=== PATIENT | male | born 1955 | race Caucasian/White ===

== ENCOUNTER 2020-05-11 13:53 | Inpatient (IN) | payer OTHER ==
[~2020-05-11] VITALS: Ht 167.6 cm; Wt 53.8 kg
[2020-05-11] MEDS ORDERED: POLYETHYLENE GLYCOL 17 GM PACKET PO PRN (14:00)
[2020-05-11] MEDS ORDERED: DOCUSATE 100 MG CAPSULE PO PRN (14:00)
[2020-05-11] MEDS ORDERED: PLEASE ENTER HEIGHT AND WEIGHT MC SCH (15:30)
[2020-05-11] MEDS ORDERED: PLEASE ENTER ALLERGIES MC SCH (15:30)
[2020-05-11 15:58] VITALS: BP 118/73
[2020-05-11] MEDS ORDERED: DOXE50CA PO (16:36)
[2020-05-11] MEDS ORDERED: ATEN-104 PO (16:36)
[2020-05-11] MEDS ORDERED: GABA600T PO (16:36)
[2020-05-11] MEDS ORDERED: MODA100T2 PO (16:36)
[2020-05-11] MEDS ORDERED: MELO15TA24 PO (16:36)
[2020-05-11] MEDS ORDERED: CLOP75TA52 PO (16:36)
[2020-05-11] MEDS ORDERED: ZOLP10TA PO (16:36)
[2020-05-11] MEDS ORDERED: TERA2CAP3 PO (16:36)
[2020-05-11] MEDS ORDERED: OMEP40CA42 PO (16:36)
[2020-05-11] MEDS ORDERED: ATOR40TA PO (16:36)
[2020-05-11] MEDS ORDERED: PHEN50TA PO (16:36)
[2020-05-11] MEDS ORDERED: FLUT12AE INH (16:36)
[2020-05-11] MEDS ORDERED: SERT100T PO (16:36)
[2020-05-11] MEDS ORDERED: ASPI-515 PO (16:36)
[2020-05-11] MEDS ORDERED: ZOLPIDEM 10MG TABLET PO PRN (17:30)
[2020-05-11 19:15] VITALS: BP 131/80
[2020-05-11] MEDS: ATORVASTATIN 40 MG TABLET PO SCH (20:49)
[2020-05-11] MEDS: PHENYTOIN 100 MG CAPSULE PO SCH (20:49)
[2020-05-11] MEDS: OMEPRAZOLE 20 MG CAPSULE.DR PO SCH (20:49)
[2020-05-11] MEDS: DOXEPIN 25 MG CAPSULE PO SCH (20:49)
[2020-05-11] MEDS: TERAZOSIN 2MG CAPSULE PO SCH (20:50)
[2020-05-11] MEDS ORDERED: DOXEPIN HCL 50 MG PO SCH (21:00)
[2020-05-11] MEDS ORDERED: BUDESONIDE 0.5 MG/2 ML INHA HHN SCH (21:00)
[2020-05-11] MEDS ORDERED: TEMPLATE NON-FORMULARY MED. (Fluticasone Propionate (Flovent Hfa 110 Mcg/Inh) 1 PUFF) INH SCH (21:00)
[2020-05-11] MEDS ORDERED: TERAZOSIN 2MG CAPSULE PO SCH (21:00)
[2020-05-12 06:30] LABS: CHOL/HDL RATIO 2.3; FREE T4 (FREE THYROXINE) 0.87 ng/dL (0.76-1.46); LDL/HDL RATIO 0.9 (0.5-3.0)
[2020-05-12 07:00] VITALS: BP 107/68
[2020-05-12 07:07] LABS: MICROSCOPIC NOT IND
[2020-05-12] MEDS ORDERED: BUPROPION SR 150 MG TABLET PO SCH (08:00)
[2020-05-12] MEDS ORDERED: SERTRALINE 100MG TABLET PO SCH ×2 (09:00)
[2020-05-12] MEDS: MODAFINIL 100 MG TABLET PO SCH (09:17)
[2020-05-12] MEDS: CLOPIDOGREL 75 MG TABLET PO SCH (09:17)
[2020-05-12] MEDS: ASPIRIN 81 MG TABLET EC PO SCH (09:17)
[2020-05-12] MEDS: OMEPRAZOLE 20 MG CAPSULE.DR PO SCH ×2 (09:18→20:19)
[2020-05-12] MEDS: ATENOLOL 50 MG TABLET PO SCH (09:18)
[2020-05-12] MEDS: GABAPENTIN 300 MG CAPSULE PO SCH (09:18)
[2020-05-12] MEDS: ACETAMINOPHEN 325 MG TABLET PO PRN ×2 (17:31→22:55)
[2020-05-12 19:17] VITALS: BP 137/78
[2020-05-12] MEDS: PHENYTOIN 100 MG CAPSULE PO SCH (20:18)
[2020-05-12] MEDS: ATORVASTATIN 40 MG TABLET PO SCH (20:19)
[2020-05-12] MEDS: DOXEPIN 25 MG CAPSULE PO SCH (20:19)
[2020-05-12] MEDS: TERAZOSIN 2MG CAPSULE PO SCH (20:19)
[2020-05-13 07:35] VITALS: BP 108/64
[2020-05-13] MEDS: OMEPRAZOLE 20 MG CAPSULE.DR PO SCH ×2 (08:55→20:40)
[2020-05-13] MEDS: SERTRALINE 100MG TABLET PO SCH (08:56)
[2020-05-13] MEDS: CLOPIDOGREL 75 MG TABLET PO SCH (08:56)
[2020-05-13] MEDS: MODAFINIL 100 MG TABLET PO SCH (08:56)
[2020-05-13] MEDS: GABAPENTIN 300 MG CAPSULE PO SCH (08:56)
[2020-05-13] MEDS: ASPIRIN 81 MG TABLET EC PO SCH (08:57)
[2020-05-13] MEDS: ACETAMINOPHEN 325 MG TABLET PO PRN (08:57)
[2020-05-13] MEDS: ATENOLOL 50 MG TABLET PO SCH (08:57)
[2020-05-13] MEDS: HYDROcodone/APAP 10/325 MG TABLET PO PRN (18:12)
[2020-05-13 19:59] VITALS: BP 122/71
[2020-05-13] MEDS: DOXEPIN 25 MG CAPSULE PO SCH (20:40)
[2020-05-13] MEDS: PHENYTOIN 100 MG CAPSULE PO SCH (20:40)
[2020-05-13] MEDS: ATORVASTATIN 40 MG TABLET PO SCH (20:40)
[2020-05-13] MEDS: TERAZOSIN 2MG CAPSULE PO SCH (20:40)
[2020-05-14] MEDS: HYDROcodone/APAP 10/325 MG TABLET PO PRN ×3 (03:40→17:59)
[2020-05-14 07:26] VITALS: BP 111/70
[2020-05-14] MEDS: GABAPENTIN 300 MG CAPSULE PO SCH (09:33)
[2020-05-14] MEDS: SERTRALINE 100MG TABLET PO SCH (09:33)
[2020-05-14] MEDS: MODAFINIL 100 MG TABLET PO SCH (09:33)
[2020-05-14] MEDS: OMEPRAZOLE 20 MG CAPSULE.DR PO SCH ×2 (09:34→21:17)
[2020-05-14] MEDS: ATENOLOL 50 MG TABLET PO SCH (09:34)
[2020-05-14] MEDS: CLOPIDOGREL 75 MG TABLET PO SCH (09:34)
[2020-05-14] MEDS: ASPIRIN 81 MG TABLET EC PO SCH (09:34)
[2020-05-14 20:00] VITALS: BP 113/78
[2020-05-14] MEDS: ATORVASTATIN 40 MG TABLET PO SCH (21:17)
[2020-05-14] MEDS: TERAZOSIN 2MG CAPSULE PO SCH (21:17)
[2020-05-14] MEDS: PHENYTOIN 100 MG CAPSULE PO SCH (21:17)
[2020-05-14] MEDS: DOXEPIN 25 MG CAPSULE PO SCH (21:18)
[2020-05-14] MEDS: ZOLPIDEM 10MG TABLET PO PRN (22:05)
[2020-05-15 07:56] VITALS: BP 111/63
[2020-05-15] MEDS: MODAFINIL 100 MG TABLET PO SCH (08:32)
[2020-05-15] MEDS: HYDROcodone/APAP 10/325 MG TABLET PO PRN ×3 (08:32→21:13)
[2020-05-15] MEDS: ATENOLOL 50 MG TABLET PO SCH (08:33)
[2020-05-15] MEDS: SERTRALINE 100MG TABLET PO SCH (08:33)
[2020-05-15] MEDS: ASPIRIN 81 MG TABLET EC PO SCH (08:34)
[2020-05-15] MEDS: CLOPIDOGREL 75 MG TABLET PO SCH (08:34)
[2020-05-15] MEDS: OMEPRAZOLE 20 MG CAPSULE.DR PO SCH ×2 (08:38→21:05)
[2020-05-15] MEDS: GABAPENTIN 300 MG CAPSULE PO SCH (08:39)
[2020-05-15] MEDS: ACETAMINOPHEN 325 MG TABLET PO PRN (13:28)
[2020-05-15 19:12] VITALS: BP 121/71
[2020-05-15] MEDS: DOXEPIN 25 MG CAPSULE PO SCH (21:05)
[2020-05-15] MEDS: ATORVASTATIN 40 MG TABLET PO SCH (21:05)
[2020-05-15] MEDS: ZOLPIDEM 10MG TABLET PO PRN (21:05)
[2020-05-15] MEDS: PHENYTOIN 100 MG CAPSULE PO SCH (21:05)
[2020-05-15] MEDS: TERAZOSIN 2MG CAPSULE PO SCH (21:05)
[2020-05-16 07:35] VITALS: BP 97/53
[2020-05-16] MEDS: OMEPRAZOLE 20 MG CAPSULE.DR PO SCH ×2 (08:12→20:45)
[2020-05-16] MEDS: GABAPENTIN 300 MG CAPSULE PO SCH (08:12)
[2020-05-16] MEDS: HYDROcodone/APAP 10/325 MG TABLET PO PRN ×2 (08:13→20:47)
[2020-05-16] MEDS: ATENOLOL 50 MG TABLET PO SCH (08:13)
[2020-05-16] MEDS: ASPIRIN 81 MG TABLET EC PO SCH (08:13)
[2020-05-16] MEDS: MODAFINIL 100 MG TABLET PO SCH (08:13)
[2020-05-16] MEDS: SERTRALINE 100MG TABLET PO SCH (08:14)
[2020-05-16] MEDS: CLOPIDOGREL 75 MG TABLET PO SCH (08:16)
[2020-05-16 08:19] VITALS: BP 104/57
[2020-05-16] MEDS: ACETAMINOPHEN 325 MG TABLET PO PRN (13:17)
[2020-05-16 19:42] VITALS: BP 101/63
[2020-05-16] MEDS: PHENYTOIN 100 MG CAPSULE PO SCH (20:45)
[2020-05-16] MEDS: TERAZOSIN 2MG CAPSULE PO SCH (20:46)
[2020-05-16] MEDS: ATORVASTATIN 40 MG TABLET PO SCH (20:46)
[2020-05-16] MEDS: ZOLPIDEM 10MG TABLET PO PRN (20:46)
[2020-05-16] MEDS: DOXEPIN 25 MG CAPSULE PO SCH (20:47)
[2020-05-17 07:42] VITALS: BP 95/53
[2020-05-17] MEDS: MODAFINIL 100 MG TABLET PO SCH (08:33)
[2020-05-17] MEDS: SERTRALINE 100MG TABLET PO SCH (08:33)
[2020-05-17] MEDS: OMEPRAZOLE 20 MG CAPSULE.DR PO SCH ×2 (08:35→20:41)
[2020-05-17] MEDS: ATENOLOL 50 MG TABLET PO SCH (08:35)
[2020-05-17] MEDS: GABAPENTIN 300 MG CAPSULE PO SCH (08:36)
[2020-05-17] MEDS: HYDROcodone/APAP 10/325 MG TABLET PO PRN ×3 (08:36→20:40)
[2020-05-17] MEDS: CLOPIDOGREL 75 MG TABLET PO SCH (08:36)
[2020-05-17] MEDS: ASPIRIN 81 MG TABLET EC PO SCH (08:37)
[2020-05-17 20:03] VITALS: BP 96/59
[2020-05-17] MEDS: PHENYTOIN 100 MG CAPSULE PO SCH (20:40)
[2020-05-17] MEDS: DOXEPIN 25 MG CAPSULE PO SCH (20:41)
[2020-05-17] MEDS: ZOLPIDEM 10MG TABLET PO PRN (20:42)
[2020-05-17] MEDS: TERAZOSIN 2MG CAPSULE PO SCH (20:42)
[2020-05-17] MEDS: ATORVASTATIN 40 MG TABLET PO SCH (20:42)
[2020-05-18 07:53] VITALS: BP 96/60
[2020-05-18] MEDS: ASPIRIN 81 MG TABLET EC PO SCH (08:40)
[2020-05-18] MEDS: ATENOLOL 50 MG TABLET PO SCH (08:41)
[2020-05-18] MEDS: GABAPENTIN 300 MG CAPSULE PO SCH (08:41)
[2020-05-18] MEDS: MODAFINIL 100 MG TABLET PO SCH (08:41)
[2020-05-18] MEDS: OMEPRAZOLE 20 MG CAPSULE.DR PO SCH ×2 (08:42→20:36)
[2020-05-18] MEDS: SERTRALINE 100MG TABLET PO SCH (08:43)
[2020-05-18] MEDS: CLOPIDOGREL 75 MG TABLET PO SCH (08:50)
[2020-05-18] MEDS: HYDROcodone/APAP 10/325 MG TABLET PO PRN (09:04)
[2020-05-18] MEDS ORDERED: SERT100T32 PO (15:17)
[2020-05-18] MEDS: ACETAMINOPHEN 325 MG TABLET PO PRN (15:40)
[2020-05-18 19:07] VITALS: BP 112/74
[2020-05-18] MEDS: ATORVASTATIN 40 MG TABLET PO SCH (20:36)
[2020-05-18] MEDS: ZOLPIDEM 10MG TABLET PO PRN (20:36)
[2020-05-18] MEDS: DOXEPIN 25 MG CAPSULE PO SCH (20:36)
[2020-05-18] MEDS: PHENYTOIN 100 MG CAPSULE PO SCH (20:36)
[2020-05-18] MEDS: TERAZOSIN 2MG CAPSULE PO SCH (20:39)
[2020-05-19] MEDS: HYDROcodone/APAP 10/325 MG TABLET PO PRN (04:42)
[2020-05-19 07:21] VITALS: BP 113/70
[2020-05-19] MEDS: OMEPRAZOLE 20 MG CAPSULE.DR PO SCH (08:14)
[2020-05-19] MEDS: MODAFINIL 100 MG TABLET PO SCH (08:15)
[2020-05-19] MEDS: GABAPENTIN 300 MG CAPSULE PO SCH (08:16)
[2020-05-19] MEDS: SERTRALINE 100MG TABLET PO SCH (08:16)
[2020-05-19] MEDS: ASPIRIN 81 MG TABLET EC PO SCH (08:16)
[2020-05-19] MEDS: CLOPIDOGREL 75 MG TABLET PO SCH (08:16)
[2020-05-19] MEDS: ATENOLOL 50 MG TABLET PO SCH (08:17)
== END 2020-05-19 14:15 | disposition home or self-care (01) | DRG 885 ==
LOC: 3E 14:52
PROVIDERS: ADMIT Psychiatry & Neurology Psychosomatic Medicine; ATTEND Psychiatry & Neurology Psychosomatic Medicine
DX: F33.2 Major depressive disorder, recurrent severe without psychotic features (principal); E78.5 Hyperlipidemia, unspecified; F43.21 Adjustment disorder with depressed mood; G40.909 Epilepsy, unspecified, not intractable, without status epilepticus; G47.00 Insomnia, unspecified; G89.29 Other chronic pain; I10 Essential (primary) hypertension; I25.10 Atherosclerotic heart disease of native coronary artery without angina pectoris; K21.9 Gastro-esophageal reflux disease without esophagitis; N40.0 Benign prostatic hyperplasia without lower urinary tract symptoms; K22.2 Esophageal obstruction; I69.320 Aphasia following cerebral infarction; Z79.1 Long term (current) use of non-steroidal anti-inflammatories (NSAID); Z79.82 Long term (current) use of aspirin; Z79.899 Other long term (current) drug therapy
CPT/HCPCS: 36415; 80061; 80185; 81003; 84439; 84443; 93005; 92523-GN

== ENCOUNTER 2020-05-22 14:35 | Emergency (ER) | payer OTHER ==
[~2020-05-22] VITALS: Ht 167.6 cm; Wt 52.3 kg
[~2020-05-22 14:35] MED LIST: ASPI-515 PO; ATEN-104 PO; ATOR40TA PO; CLOP75TA52 PO; DOXE50CA PO; FLUT12AE INH; GABA600T PO; MELO15TA24 PO; MODA100T2 PO; OMEP40CA42 PO; PHEN50TA PO; SERT100T PO; SERT100T32 PO; TERA2CAP3 PO; ZOLP10TA PO
[2020-05-22 14:38] VITALS: BP 129/74
--- NOTE | 2020-05-22 15:09 | NUR ---
PT IN BED. REFUSING BLANKETS. DAUGHTER AT BEDSIDE. CALL LIGHT IN REACH. ERP IN TO SEE AT THIS TIME.
--- NOTE | 2020-05-22 16:29 | NUR ---
BREAK RN: PTS DAUGHTER AT BEDSIDE. D/C INSTRUCTIONS REVIEWED AND QUESTIONS ANSWERED. PT D/C HOME WITH DAUGHTER, UPRIGHT STEADY GAIT.
== END 2020-05-22 16:30 | disposition home or self-care (01) ==
LOC: ED 16:07
DX: F33.9 Major depressive disorder, recurrent, unspecified (principal); M79.632 Pain in left forearm
CPT/HCPCS: 99281